=== PATIENT | female | born 2000 | race Caucasian/White ===

== ENCOUNTER 2018-12-28 20:02 | Emergency (ER) | payer OTHER ==
[2018-12-28 20:32] VITALS: BP 99/61
--- NOTE | 2018-12-28 20:55 | UC ---
Abdominal Pain Female HPI - HPI Summary HPI Summary: 18-year-old female who states she started having some lower abdominal discomfort yesterday. She felt she was constipated however she's had 3 stools since then which were not hard. She states one of them had some bright red blood in it but the stool itself was brown. At one point she states that particular stool was "hard to get out". She has had some urinary frequency and at one point she states she was incontinent of urine one day last week. She denies any burning on urination. She is sexually active with one partner but denies any abnormal vaginal discharge. She is on control pills and her next period is due in 5 days. - History of Current Complaint Chief Complaint: UCAbdominalPain Stated Complaint: PERSONAL ISSUE Time Seen by Provider: 12/28/18 20:35 Hx Obtained From: Patient Hx Last Menstrual Period: 12/06/18 ?: No Onset/Duration: Gradual Onset Timing: Constant Severity Initially: Mild Severity Currently: Mild Pain Intensity: 2 Location: Diffuse - Diffuse across lower abdomen Radiates: No Character: Dull Aggravating Factor(s): Nothing Alleviating Factor(s): Bowel Movement Associated Signs and Symptoms: Positive: Constipation, Blood in Stool - Patient states she had food with spaghetti sauce yesterday. The stool today had some blood streaks visible but stool itself was brown., Nausea - Patient states she had "3 seconds of nausea". Allergies/Adverse Reactions: Allergies Allergy/AdvReac Type Severity Reaction Status Date / Time amoxicillin Allergy Hives Verified 12/28/18 20:22 Home Medications: Home Medications Norethindrone AC-Eth Estradiol [Loestrin 1.5/30-21 1.5-30 mg-Mcg] 1 tab PO DAILY 12/28/18 [History Confirmed 12/28/18] PMH/Surg Hx/FS Hx/Imm Hx Previously Healthy: Yes - Surgical History Surgical History: Yes Surgery Procedure, Year, and Place: adenoids removed as a child. - Family History Known Family History: Positive: Non-Contributory - Social History Alcohol Use: None Substance Use Type: None Smoking Status (MU): Never Smoked Tobacco Review of Systems All Other Systems Reviewed And Are Negative: Yes Physical Exam Triage Information Reviewed: Yes Appearance: Well-Appearing, No Pain Distress, Well-Nourished Vital Signs: Initial Vital Signs Temp 99.7 F 12/28/18 20:23 Pulse 64 12/28/18 20:23 Resp 18 12/28/18 20:23 BP 99/61 12/28/18 20:23 Pulse Ox 100 12/28/18 20:23 Vital Signs Reviewed: Yes Eyes: Positive: Conjunctiva Clear ENT: Positive: Hearing grossly normal, Pharynx normal, TMs normal, Uvula midline Neck: Positive: Supple, Nontender, No Lymphadenopathy Respiratory: Positive: Lungs clear, Normal breath sounds, No respiratory distress, No accessory muscle use Cardiovascular: Positive: RRR, No Murmur, Pulses Normal, Brisk Capillary Refill Abdomen Description: Positive: Nontender, No Organomegaly, Soft. Negative: CVA Tenderness (R), CVA Tenderness (L), Distended, Guarding, Hepatomegaly, McBurney' s Point Tenderness, Peritoneal Signs, Splenomegaly Bowel Sounds: Positive: Present Musculoskeletal: Positive: Strength Intact, ROM Intact Neurological: Positive: Alert, Muscle Tone Normal Psychological Exam: Normal Skin Exam: Normal - Additional Comments A rectal exam was normal ankle stool for guaiac was negative. When I wiped the lubricant from the rectum there was some pink on the tissue and it was noted that the patient had some vaginal bleeding. When I advised her of this she stated "Oh, so I just have my period and this lower abdominal discomfort is period pain". Abd Pain Female Course/Dx - Course Course Of Treatment: Patient is comfortable here. Urinalysis was negative for leukocytes but has some blood and protein in it. Urine test was negative. Stool for guaiac was negative. I believe at this point the patient's abdominal discomfort is more due to her menses starting. The patient is agreeable with this. If she develops any worsening abdominal pain she is to go to the emergency room for further evaluation. - Differential Dx/Diagnosis Provider Diagnosis: Abdominal pain Discharge ED - Sign-Out/Discharge Documenting (check all that apply): Patient Departure All imaging exams completed and their final reports reviewed: No Studies - Discharge Plan Condition: Good Disposition: HOME Referrals: Care [facility] [Outside] No Primary Care Phys,NOPCP [Primary Care Provider] - Additional Instructions: Follow-up with your primary care provider if you have any worsening symptoms. If you develop severe abdominal pain and go to the emergency room for further evaluation. - Billing Disposition and Condition Condition: GOOD Disposition: Home - Attestation Statements Provider Attestation: This patient was not seen by me. I was available for consult. TC
== END 2018-12-28 21:21 | disposition home or self-care (01) ==
LOC: UCEAST 20:02
DX: R10.9 Unspecified abdominal pain (principal)
CPT/HCPCS: 81003; 82270; 84702; 99211; G0463